=== PATIENT | male | born 1995 | race Caucasian/White ===

== ENCOUNTER 2020-07-26 02:26 | Emergency (ER) | payer OTHER ==
[~2020-07-26] VITALS: Ht 185.4 cm; Wt 97.5 kg
[2020-07-26 02:41] LABS: URINE BILIRUBIN NEGATIVE (Negative); URINE BLOOD NEGATIVE (Negative); URINE CLARITY CLEAR; URINE COLOR YELLOW; URINE GLUCOSE-RANDOM NEGATIVE (Negative); URINE KETONES NEGATIVE (Negative); URINE LEUKOCYTES NEGATIVE (Negative); URINE NITRITE NEGATIVE (Negative); URINE PROTEIN NEGATIVE (Negative); URINE SPECIFIC GRAVITY <= 1.005 (1.005-1.030); URINE UROBILINOGEN 0.2 E.U./dl (0.2-1.0)
[2020-07-26] MEDS ORDERED: PROAIR HFA8.5 GM INH (02:41)
[2020-07-26 02:48] LABS: AMP/METHAMP Negative (Negative); BARBITURATES Negative (Negative); BENZODIAZEPINES Negative (Negative); COCAINE Negative (Negative); METHADONE Negative (Negative); OPIATES Negative (Negative); PCP Negative (Negative); THC Negative (Negative)
[2020-07-26 02:55] LABS: HEMATOCRIT 46.8 % (42.0-52.0); MCH 29.7 pg (26.0-34.0); MCHC 34.2 g/dL (28.0-37.0); MCV 86.8 fL (80.0-100.0); MPV 7.6 fl. (7.2-11.1); RBC 5.39 mil/uL (4.50-6.00); WBC 11.9 thou/uL (4.0-11.0)
[2020-07-26 03:00] LABS: CREATININE 1.4 mg/dL (0.6-1.3); POTASSIUM 3.8 mmol/L (3.5-5.1)
[2020-07-26 03:05] LABS: ALBUMIN 4.3 g/dL (3.4-5.0); TOTAL BILIRUBIN 0.3 mg/dL (<0.1-1.0); TOTAL PROTEIN 8.3 g/dL (6.4-8.2)
[2020-07-26 03:17] LABS: ALCOHOL 244 mg/dL (<10); SALICYLATE < 2.8 mg/dL (2.8-20.0)
[2020-07-26 03:19] LABS: ACETAMINOPHEN < 2 ug/mL (10-30)
[2020-07-26 04:24] VITALS: BP 132/68
== END 2020-07-26 04:24 ==
LOC: M.ERS 02:26
PROVIDERS: Personal Emergency Response Attendant
DX: F10.129 Alcohol abuse with intoxication, unspecified (principal); Y90.8 Blood alcohol level of 240 mg/100 ml or more; J45.909 Unspecified asthma, uncomplicated; Z79.899 Other long term (current) drug therapy